=== PATIENT | male | born 2005 | race Caucasian/White ===

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

== ENCOUNTER 2024-04-13 21:42 | Emergency (ER) | payer SELFPAY ==
[2024-04-13 21:51] VITALS: BP 116/56; PULSE 86; RESP 16; TEMP 36.6; O2SAT 96
--- NOTE | 2024-04-13 22:03 | USR_ITS ---
PROCEDURE INFORMATION: Exam: US Scrotum Exam date and time: 04/13/2024 10:41 PM Age: 18 years old Clinical indication: Other: Palpable soft lump, some pain left scrotum x 3 months. No trauma, no vasectomy. TECHNIQUE: Imaging protocol: Real-time ultrasound of the scrotum and contents with color Doppler and image documentation. COMPARISON: No relevant prior studies available. FINDINGS: Right testicle: The right testicle measures 4.5 cm x 2.4 cm x 3.1 cm with a volume of 17.6 mL. No mass. No torsion. Normal vascular flow. Left testicle: The left testicle measures 4.5 cm x 2.0 cm x 3.1 cm with a volume of 14.3 mL. No mass. No torsion. Normal vascular flow. Epididymides: The right epididymis measures 3.4 cm x 1.3 cm x 0.7 cm. The left epididymis measures 3.7 cm x 0.8 cm x 2.1 cm and contains two hypoechoic cystic structures measuring up to 0.6 cm and 0.3 cm. Scrotum/soft tissues: Grossly unremarkable. US/US scrotum [id number] IMPRESSION: Left epididymal hypoechoic cystic structures measuring up to 0.6 cm and 0.3 cm most compatible with benign cysts versus spermatoceles.
--- NOTE | 2024-04-13 22:05 | W.ED.MALEGU ---
HPI - Male Genitourinary General: Chief complaint: Urogenital-Male Stated complaint: Lump on left Testical Time Seen by Provider: 04/13/24 21:45 Source: patient Mode of arrival: ambulatory Limitations: no limitations History of Present Illness: 18-year-old male states he had a lump he has noticed his left testicle for the last 3 months states today is causing him some slight pain he taken ibuprofen states the pains resolved he does have some pain with palpation though denies any dysuria denies any fevers Associated symptoms: Deny dysuria, nausea or vomiting Review of Systems Const: Denies: fever(s), chills, body aches or change in appetite ENMT: Denies: throat pain or dental pain Card: Denies: chest pain Resp: Denies: dyspnea GI: Denies: abdominal pain, nausea, vomiting or diarrhea : Reports: testicular mass; Denies: dysuria Musc: Denies: neck pain or back pain Skin/Breast: Denies: rash Neuro: Denies: headache(s) Psych: Denies: depression PFSH ED PFSH: Medical History (Updated 04/13/24 @ 23:22 by Marian Solano MD) Sprain of right shoulder Hemiparesis 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 Social History Smoking and tobacco/nicotine status: never used tobacco/nicotine Second hand smoke exposure: No Alcohol intake: never Substance/Drug Use: never Adopted: No Highest education level completed: 9th Grade Current occupational exposures/hazards: No Current gender identity: Male Special madeline needs: No Agree to transfusion: Yes Physical Exam Const: COMMON NORMALS: no acute distress, patient oriented x3 and healthy appearing HENMT: COMMON NORMALS: normocephalic and atraumatic HEAD & SCALP: normocephalic and atraumatic Neck/C-Spine: COMMON NORMALS: full ROM and supple Chest: COMMONS NORMALS: normal inspection of the chest Resp: COMMON NORMALS: normal respiratory effort GI: COMMON NORMALS: Normal to inspection, nondistended, normoactive bowel sounds present, Soft to palpation, non-tender and no masses PALPATION: Yes Soft to palpation : PENIS: normal penis SCROTUM: Yes testes descended bilaterally TESTES: Yes testicular lie normal OTHER: Slight tenderness to left testicle Extremity: COMMON NORMALS: normal to inspection and full ROM Neuro: COMMON NORMALS: patient oriented x3, moves all extremities and no focal motor deficits Psych: COMMON NORMALS: mental status grossly normal, Normal thought process present and cooperative THOUGHT PROCESS: Normal thought process present Skin: COMMON NORMALS: no rashes or lesions noted and no wounds GENERAL SKIN EXAM: no rashes or lesions noted Course Vital Signs: Vital signs: Vital Signs Temperature 97.9 F 04/13/24 21:51 Pulse Rate 86 04/13/24 21:51 Respiratory Rate 16 04/13/24 21:51 Blood Pressure 116/56 04/13/24 21:51 Pulse Oximetry 96 04/13/24 21:51 Oxygen Delivery Me thod Room Air 04/13/24 21:51 MDM - Male Medical Decision Making Patient presents here with a knot on his epididymis is likely a cyst he is well-appearing here no signs of torsion he is stable for discharge she is follow-up with PCP return if worsening. Medical Records I reviewed the patient's medical records. Lab Data Radiology Impressions Scrotum Ultrasound 04/13/24 22:03 IMPRESSION: Left epididymal hypoechoic cystic structures measuring up to 0.6 cm and 0.3 cm most compatible with benign cysts versus spermatoceles. All radiology interpretation(s) finalized by discharge Discharge Plan Discharge Patient Disposition: Home Clinical Impression: Cyst, epididymis Condition: Stable Prescriptions: No Action famotidine 20 mg tablet 20 mg PO BID 30 Days Qty: 60 0RF spinosad [Natroba] 0.9 % suspension 120 ml topical ONCE 1 Days Qty: 120 0RF Rx Instructions: apply to clean, dry hair; saturate scalp/hair; leave 10 mins; rinse; don't wash hair for 48h Discharge Orders: Discharge ED (Routine); Ordered 04/13/24 Ordered By: Marian Solano Referrals: Jonna Quintana FNP-[facility] [Primary Care Provider] - 1-3 days Discharge Diet: Advance as tolerated Discharge Activity: Resume usual activity Patient Instructions: Spermatocele (ED) Coding Level of Care Code ED Completions Engineer for Aolndra Morris
[2024-04-13 23:33] VITALS: PULSE 64; RESP 14; O2SAT 98
== END 2024-04-13 23:40 | disposition home or self-care (01) ==
PROVIDERS: Emergency Provider Emergency Medicine; Family Provider Nurse Practitioner; PCP Nurse Practitioner
DX: N45.1 Epididymitis (principal); N44.2 Benign cyst of testis
CPT/HCPCS: 76870; 99283